=== PATIENT | male | born 1955 | race Caucasian/White ===

== ENCOUNTER 2022-02-21 12:02 | Outpatient (CLI) | payer MEDICARE | END 2022-02-21 12:03 | disposition home or self-care (01) | LOC: CSHCT 12:02 | PROVIDERS: ATTEND Family Medicine | DX: Z12.2 Encounter for screening for malignant neoplasm of respiratory organs (principal); F17.210 Nicotine dependence, cigarettes, uncomplicated; N28.9 Disorder of kidney and ureter, unspecified | CPT/HCPCS: 71271 ==

== ENCOUNTER 2022-03-07 12:39 | Outpatient (CLI) | payer MEDICARE | END 2022-03-07 12:40 | disposition home or self-care (01) | LOC: CSHCT 12:39 | PROVIDERS: ATTEND Family Medicine | DX: N28.9 Disorder of kidney and ureter, unspecified (principal); N28.1 Cyst of kidney, acquired | CPT/HCPCS: 74178; 82565 ==

== ENCOUNTER 2022-09-11 10:20 | Outpatient (CLI) | payer MEDICARE ==
[~2022-09-11 10:20] MED LIST: Iopamidol 300 61% 100 ML VIAL FS ONE
== END 2022-09-11 10:21 | disposition home or self-care (01) ==
LOC: CSHCT 10:20
PROVIDERS: ATTEND Family Medicine
DX: N28.1 Cyst of kidney, acquired (principal)
CPT/HCPCS: 74178; 82565